=== PATIENT | female | born 1970 | race Caucasian/White ===

== ENCOUNTER 2017-02-25 09:27 | Emergency (ER) | payer OTHER ==
[~2017-02-25] VITALS: Ht 149.9 cm; Wt 64.5 kg
[~2017-02-25 09:27] MED LIST: IBUP-2071 PO
[2017-02-25] MEDS ORDERED: KETOROLAC TROMETHAMINE 30 MG/ML VIAL IM ONE (10:30)
[2017-02-25 10:50] VITALS: BP 120/68
== END 2017-02-25 11:08 | disposition home or self-care (01) ==
LOC: EMS 09:27
DX: S39.012A Strain of muscle, fascia and tendon of lower back, initial encounter (principal); E78.00 Pure hypercholesterolemia, unspecified; F17.210 Nicotine dependence, cigarettes, uncomplicated; X50.0XXA Overexertion from strenuous movement or load, initial encounter; Y93.89 Activity, other specified; Y92.89 Other specified places as the place of occurrence of the external cause; Y99.8 Other external cause status
CPT/HCPCS: 96372; 99283; 99406; J1885

== ENCOUNTER 2017-04-05 08:35 | Emergency (ER) | payer OTHER ==
[~2017-04-05] VITALS: Ht 149.9 cm; Wt 66.8 kg
[2017-04-05] MEDS ORDERED: KETOROLAC TROMETHAMINE 30 MG/ML VIAL IM ONE (09:45)
[2017-04-05] MEDS ORDERED: LIDOCAINE HCL 5% TRANSDERMAL PATCH TD ONE (09:45)
[2017-04-05 09:46] VITALS: BP 122/77
== END 2017-04-05 09:59 | disposition home or self-care (01) ==
LOC: EMS 08:39
DX: M54.40 Lumbago with sciatica, unspecified side (principal); R03.0 Elevated blood-pressure reading, without diagnosis of hypertension; E78.00 Pure hypercholesterolemia, unspecified; F17.210 Nicotine dependence, cigarettes, uncomplicated
CPT/HCPCS: 96372; 99283; J1885

== ENCOUNTER 2022-08-26 15:05 | Emergency (ER) | payer OTHER ==
[~2022-08-26] VITALS: Ht 149.9 cm; Wt 68.2 kg
[~2022-08-26 15:05] MED LIST changes: +IBUP-1493 PO; -IBUP-2071 PO
[2022-08-26 15:24] VITALS: BP 136/98
[2022-08-26] MEDS ORDERED: ACETAMINOPHEN 500 MG TABLET PO ONE (16:15)
[2022-08-26] MEDS ORDERED: AMOX TR/POT CLAV 875 MG/125 MG TABLET PO ONE (16:15)
[2022-08-26] MEDS ORDERED: IBUPROFEN 600 MG TABLET PO ONE (16:15)
[2022-08-26] MEDS ORDERED: IBUP-1492 PO (16:59)
[2022-08-26] MEDS ORDERED: AMOX1TAB16 PO (16:59)
== END 2022-08-26 17:07 | disposition home or self-care (01) ==
LOC: EMS 15:05
DX: K08.89 Other specified disorders of teeth and supporting structures (principal); F32.A Depression, unspecified; E78.00 Pure hypercholesterolemia, unspecified; F17.210 Nicotine dependence, cigarettes, uncomplicated; Z90.49 Acquired absence of other specified parts of digestive tract; Z98.51 Tubal ligation status
CPT/HCPCS: 99284; Z7502; Z7610

== ENCOUNTER 2022-10-08 18:42 | Emergency (ER) | payer OTHER ==
[~2022-10-08] VITALS: Ht 152.4 cm; Wt 77.3 kg
[~2022-10-08 18:42] MED LIST changes: +AMOX1TAB16 PO; +IBUP-1492 PO
[2022-10-08 18:51] VITALS: BP 160/106
[2022-10-08] MEDS ORDERED: PENI500T2 PO (20:41)
[2022-10-08] MEDS ORDERED: HYDR-4723 PO (20:41)
[2022-10-08] MEDS ORDERED: KETOROLAC TROMETHAMINE 30 MG/ML VIAL IM ONE (21:15)
== END 2022-10-08 21:33 | disposition home or self-care (01) ==
LOC: EMS 18:42
DX: K08.89 Other specified disorders of teeth and supporting structures (principal); E78.00 Pure hypercholesterolemia, unspecified; F32.A Depression, unspecified; F17.210 Nicotine dependence, cigarettes, uncomplicated; Z87.440 Personal history of urinary (tract) infections; Z90.49 Acquired absence of other specified parts of digestive tract; Z98.51 Tubal ligation status
CPT/HCPCS: 99283; 96372; J1885

== ENCOUNTER 2023-01-19 11:02 | Emergency (ER) | payer OTHER ==
[~2023-01-19] VITALS: Ht 149.9 cm; Wt 73.2 kg
[~2023-01-19 11:02] MED LIST changes: -AMOX1TAB16 PO; +HYDR-4723 PO; -IBUP-1492 PO; -IBUP-1493 PO; +PENI500T2 PO
[2023-01-19 11:14] VITALS: BP 147/94; PULSE 72; RESP 16; TEMP 98
[2023-01-19] MEDS ORDERED: PENI500T2 PO (11:46)
[2023-01-19] MEDS ORDERED: IBUP-1492 PO (12:40)
== END 2023-01-19 11:54 | disposition home or self-care (01) ==
LOC: EMS 11:28
DX: K02.9 Dental caries, unspecified (principal); F32.A Depression, unspecified; E78.00 Pure hypercholesterolemia, unspecified; F17.210 Nicotine dependence, cigarettes, uncomplicated; Z90.49 Acquired absence of other specified parts of digestive tract; Z98.51 Tubal ligation status; Z98.890 Other specified postprocedural states
CPT/HCPCS: 99283; Z7502

== ENCOUNTER 2023-03-14 06:12 | Emergency (ER) | payer OTHER ==
[~2023-03-14] VITALS: Ht 162.6 cm; Wt 80.0 kg
[~2023-03-14 06:12] MED LIST changes: -HYDR-4723 PO; +IBUP-1492 PO
[2023-03-14 06:19] VITALS: BP 160/100; PULSE 72; RESP 17; TEMP 98
[2023-03-14] MEDS ORDERED: LIDOCAINE 5% TRANSDERMAL PATCH TD ONE (06:30)
[2023-03-14] MEDS ORDERED: ACETAMINOPHEN 500 MG TABLET PO ONE (06:30)
[2023-03-14] MEDS ORDERED: KETOROLAC TROMETHAMINE 30 MG/ML VIAL IM ONE (06:30)
[2023-03-14 07:23] LABS: APPEARANCE,URINE CLEAR (CLEAR); BILIRUBIN,URINE NEGATIVE (NEGATIVE); COLOR,URINE LIGHT YELLOW (YELLOW); GLUCOSE, URINE (UA) NEGATIVE (NEGATIVE); KETONES,URINE NEGATIVE (NEGATIVE); LEUKOCYTE ESTERASE ,URINE NEGATIVE (NEGATIVE); NITRATE,URINE NEGATIVE (NEGATIVE); OCCULT BLOOD,URINE TRACE (NEGATIVE); PH,URINE 6.5 (5.0-8.0); PROTEIN,URINE NEGATIVE (NEGATIVE); SPECIFIC GRAVITIY, URINE 1.015 (1.003-1.030); UROBILINOGEN,URINE <=1.0 mg/dL (<=1.0)
[2023-03-14 07:43] LABS: BACTERIA,URINE None Seen /HPF (None Seen); RBC,URINE 0-2 /HPF (0-2); SQUAMOUS EPITHELIAL CELL,UR Few /LPF (None Seen); WBC,URINE None Seen /HPF (0-5)
[2023-03-14 07:44] LABS: HCG,QUAL URINE NEGATIVE (NEGATIVE)
[2023-03-14] MEDS ORDERED: IBUP-1492 PO (07:57)
[2023-03-14] MEDS ORDERED: ACET-3385 PO (07:57)
[2023-03-14] MEDS ORDERED: LIDO700A15 TP (07:57)
== END 2023-03-14 08:16 | disposition home or self-care (01) ==
LOC: EMS 06:16
DX: S39.012A Strain of muscle, fascia and tendon of lower back, initial encounter (principal); F32.A Depression, unspecified; E78.00 Pure hypercholesterolemia, unspecified; F17.210 Nicotine dependence, cigarettes, uncomplicated; Z98.51 Tubal ligation status; Z90.49 Acquired absence of other specified parts of digestive tract; Z98.890 Other specified postprocedural states; X50.0XXA Overexertion from strenuous movement or load, initial encounter; Y93.89 Activity, other specified; Y92.89 Other specified places as the place of occurrence of the external cause; Y99.0 Civilian activity done for income or pay
CPT/HCPCS: 99283; 81001; 84703; 96372; J1885

== ENCOUNTER 2023-09-07 12:13 | Emergency (ER) | payer OTHER ==
[~2023-09-07] VITALS: Ht 149.9 cm; Wt 72.7 kg
[~2023-09-07 12:13] MED LIST changes: +ACET-3385 PO; +LIDO700A15 TP
[2023-09-07 12:39] VITALS: BP 158/94; PULSE 73; RESP 18; TEMP 98.6
[2023-09-07] MEDS ORDERED: AMOX250C4 PO (14:14)
== END 2023-09-07 14:30 | disposition home or self-care (01) ==
LOC: EMS 12:15
DX: K02.9 Dental caries, unspecified (principal); F41.9 Anxiety disorder, unspecified; R06.02 Shortness of breath; F17.210 Nicotine dependence, cigarettes, uncomplicated; Z79.899 Other long term (current) drug therapy
CPT/HCPCS: 71045; 99283

== ENCOUNTER 2023-11-24 04:30 | Emergency (ER) | payer OTHER ==
[~2023-11-24] VITALS: Ht 149.9 cm; Wt 72.7 kg
[~2023-11-24 04:30] MED LIST changes: +AMOX250C4 PO
[2023-11-24] MEDS ORDERED: PENI500T2 PO (06:28)
[2023-11-24] MEDS ORDERED: IBUP-1492 PO (06:28)
[2023-11-24] MEDS ORDERED: PERCT PO (06:28)
[2023-11-24] MEDS: KETOROLAC TROMETHAMINE 60 MG/2 ML VIAL IM ONE (06:49)
[2023-11-24] MEDS: PENICILLIN V POTASSIUM 500 MG TABLET PO ONE (06:49)
[2023-11-24 07:04] VITALS: BP 132/77; PULSE 71; RESP 16; TEMP 98.3
== END 2023-11-24 07:21 | disposition home or self-care (01) ==
LOC: EMS 04:30
DX: K02.9 Dental caries, unspecified (principal); F32.A Depression, unspecified; E78.00 Pure hypercholesterolemia, unspecified; F17.210 Nicotine dependence, cigarettes, uncomplicated; Z90.49 Acquired absence of other specified parts of digestive tract; Z98.51 Tubal ligation status; Z98.890 Other specified postprocedural states
CPT/HCPCS: 99283; 96372; J1885

== ENCOUNTER 2024-02-02 13:57 | Emergency (ER) | payer OTHER ==
[~2024-02-02 13:57] MED LIST changes: +PERCT PO
== END 2024-02-02 15:53 | disposition left against medical advice (07) ==
LOC: EMS 13:57
DX: K08.89 Other specified disorders of teeth and supporting structures (principal); R51.9 Headache, unspecified; Z53.21 Procedure and treatment not carried out due to patient leaving prior to being seen by health care provider

== ENCOUNTER 2024-05-15 12:51 | Emergency (ER) | payer OTHER ==
[~2024-05-15] VITALS: Ht 149.9 cm; Wt 75.0 kg
[2024-05-15 12:59] VITALS: BP 149/88; PULSE 89; RESP 16; TEMP 98.2; O2SAT 98
[2024-05-15] MEDS ORDERED: MOXI3DRO25 OD (17:04)
[2024-05-15] MEDS ORDERED: HYDR30CR3 TP (17:05)
== END 2024-05-15 17:15 | disposition home or self-care (01) ==
LOC: EMS 12:51
DX: H00.12 Chalazion right lower eyelid (principal); H10.9 Unspecified conjunctivitis; L30.9 Dermatitis, unspecified; E78.00 Pure hypercholesterolemia, unspecified; F17.210 Nicotine dependence, cigarettes, uncomplicated; Z87.440 Personal history of urinary (tract) infections; Z90.49 Acquired absence of other specified parts of digestive tract; Z98.51 Tubal ligation status
CPT/HCPCS: 99283; Z7502

== ENCOUNTER 2024-07-20 10:04 | Emergency (ER) | payer OTHER ==
[~2024-07-20] VITALS: Ht 149.9 cm; Wt 72.0 kg
[~2024-07-20 10:04] MED LIST changes: -ACET-3385 PO; +HYDR30CR3 TP; -LIDO700A15 TP; +MOXI3DRO25 OD; -PENI500T2 PO; -PERCT PO
[2024-07-20 10:16] VITALS: BP 159/91; PULSE 70; RESP 17; TEMP 98.1; O2SAT 96
[2024-07-20] MEDS ORDERED: ACET-2080 PO (11:14)
[2024-07-20] MEDS ORDERED: PENI500T2 PO (11:14)
[2024-07-20] MEDS ORDERED: IBUP-1554 PO (11:14)
== END 2024-07-20 12:38 | disposition home or self-care (01) ==
LOC: EMS 10:05
DX: K04.7 Periapical abscess without sinus (principal); K02.9 Dental caries, unspecified; E78.00 Pure hypercholesterolemia, unspecified; F17.210 Nicotine dependence, cigarettes, uncomplicated; Z87.440 Personal history of urinary (tract) infections; Z98.51 Tubal ligation status; Z90.49 Acquired absence of other specified parts of digestive tract
CPT/HCPCS: 99283; Z7502